=== PATIENT | female | born 1970 | race Caucasian/White ===

== ENCOUNTER 2016-11-15 05:49 | Day surgery (SDC) | payer OTHER ==
--- NOTE | 2016-11-14 17:47 | PCM.HPANE ---
Patient Data Surgeon Admitting Provider: Attending Provider:Wan Anderson MD Primary Care Physician:Mykel Medellin MD Other Provider:Joaquin De La Rosa Anesthesia Reason for Visit Excessive And Frequent Menstruation With Regular C Ht/WT & BMI Height (Feet): 5 Height (Inches): 8 Weight (Kilograms): 85.20 Body Mass Index 28.00 Allergies Coded Allergies: No Known Allergies (Verified , 11/15/16) Past Anesthesia History Anesthesia History: Denies:: Anesthesia Reactions, Difficult Intubation, Fam Anesthesia Reaction (son had allergy to med during anes) Diabetes History Hx Diabetes?: No MRSA MRSA: Yes ( hx of near buttock (last year) cleared) Medications Hypertension Medication: No Home Meds Incl Beta Geoff: No Reported Medications Ferrous Sulfate (Iron)325 Mg Capsule.er325 Mg PO DAILY 11/11/16 History History of ENT Problems?: No HEENT History: Denies:: Cataracts Difficult Intubation Dysphagia Glaucoma Hearing Problem Sinus Problem TMJ Hx of Heart Problems?: No Cardiovascular History: Denies:: AICD Atrial Fibrillation Heart Murmur Hypertension Irregular Heartbeat Pacemaker Peripheral Vascular Hx of Respiratory Problem?: No Respiratory History: Denies:: Asthma COPD Emphysema Oxygen Administration Pneumonia Tuberculosis Use of C-PAP Machine Use of Inhalers / NEBS Hx Neurologic Problems?: No Neurological History: Denies:: CVA Dementia Dizziness Headaches Multiple Sclerosis Parkinson's Disease Seizures TIA Hx of GI Problems?: No Gastrointestinal History: Denies:: Cirrhosis Gall Bladder Disease Gastroesphageal Reflux Gastrointestinal Bleeding Heartburn Hepatitis Hiatal Hernia Liver Disease Rectal Bleeding Hx of Problems?: No Genitourinary History: Denies:: Kidney Stones Urinary Tract Infection Female Hx: Denies:: Currently (hx tubal ligation) Problems with Breasts? Skin History: Denies:: History Skin Disorders? Pressure Ulcers Hx Musculoskeletal Problems?: No Musculoskeletal History: Denies:: Back Injury Fibromyalgia Joint Replacement Musculoskeletal Trauma Myasthenia Gravis Osteoarthritis Rheumatoid Arthritis Hx of Psycho/Social Problems?: No Psycho Social History: Denies:: Anxiety Hx Depression Hx Surgeries?: Yes (tubal) Hx Any Other Health Problems?: Yes Other History: Denies:: Cancer Thyroid Disease History Blood Transfusions: Positive for:: Accept Blood Products? Denies:: Blood Transfusions Hx Diabetes: No Hx Alcohol Use: YesAlcoholic Drinks Per Day: one to two drinks monthlyHx Substance Use: NoHave You Smoked inLast 12 mo: No Stop/Bang S-Snoring: Do You Snore Loudly: No T-Tired: feel tired, fatigued: No O-Obsered: Observed not breath: No P-Blood Pressure: treated: No B- Body Mass Index > 35 kg/m2: No A- Age over 50: No N- Neck Large Circumference: No G- Gender Male: No STEVO Total Score: 0 Risk Assessment Category Category 1A: Patient has history of documented sleep apnea, and HAS NOT received any narcotic, sedative or anesthesia administration during this stay. Category 1B: Patient has history of documented sleep apnea, and HAS received any narcotic , sedative or anesthesia administration during this stay Category 2: Patient has SUSPECTED Obstructive Sleep Apnea, and HAS received any narcotic , sedative or anesthesia administration during this stay. Category 3: Patient has SUSPECTED Obstructive Sleep Apnea and HAS NOT received narcotic, sedative or anesthesia administration during this stay. Category 4: Outpatient in Procedural Areas with known sleep apnea or who screen positive for High Risk via the STOP/BANG questionnaire. Exam Exam General Appearance: Alert, Oriented X3, Cooperative HEENT/AIRWAY: MP 2, Neck Movement (from), Mouth Opening (wnl) Lungs: Clear to Auscultation Heart: Exam Unremarkable Plan Impression Patient chart reviewed, patient interviewed and anesthestic plan with risks, benefits, and alternatives discussed, and informed consent obtained. ASA Physical Status: ASA2 Mod Systemic Disease Anesthetic Plan: GA Bene/Risks/Altern/Consents: Yes HP Complete Prior to Induction: Yes Jose Antony MD Nov 14, 2016 17:47
[2016-11-15] VITALS (17 sets, daily range): BP systolic 116–145; BP diastolic 45–83; PULSE 79–105; RESP 10–20; O2SAT 94–100
[~2016-11-15] VITALS: Ht 170.2 cm; Wt 85.3 kg
[~2016-11-15 05:49] MED LIST: FERR325C PO; LORazepam 1 mg Tablet PO PRN; Lactated Ringer's 1,000 ML IV SCH
[2016-11-15] MEDS ORDERED: fentaNYL-PF 50 mCg/mL 2 mL Inj ONE (05:50)
[2016-11-15] MEDS ORDERED: HYDROmorphone 2 mg/mL Inj ONE (05:50)
[2016-11-15] MEDS ORDERED: CeFAZolin Inj 2 GM in IV Premix 1 EACH IV ONE (06:00)
[2016-11-15] MEDS ORDERED: Lactated Ringer's 1,000 ML IV SCH ×2 (06:00→07:22)
--- NOTE | 2016-11-15 06:24 | HP PRE OP ---
[address] [address] PREOPERATIVE HISTORY AND PHYSICAL PATIENT: BENSON CARLTON : 1970 MR#: [id number] ADMIT: 11/15/2016 JOB ID: [id number] IDENTIFICATION: The parent is a 46-year-old, G2, P1, AB0 woman. CHIEF COMPLAINT: Menorrhagia, dysmenorrhea, large fibroid uterus, for surgical intervention. HISTORY OF PRESENT ILLNESS: This patient carries a history of vaginal delivery and bilateral tubal ligation. She reports that periods have always been a problem, even beginning with control pill at age 17 to help control period symptomatology. Periods have been progressively worsening during the past years, however, each period lasting seven days, 3-4 days heavy, and accidents can happen. The patient has been found to be anemic, with hemoglobin at 8.3 and 8.5 during recent months, with significant iron deficiency (iron level 17 and percent saturation of 3.3). There has also been associated significant dysmenorrhea and fatigue. Although endometrial biopsy was negative on September 22, 2016, and there has been no reported abnormal Pap, transvaginal sonography demonstrated large fibroids at 7.4 and 4.7 cm in greatest dimension, felt to be the primary explanation for the bleeding and cramping issues. Overall uterine size 14.0 x 9.3 x 8.6 cm. Patient has been given options regarding the large fibroid uterus with associated severe anemia-producing menorrhagia and dysmenorrhea. She has not felt that hormonal therapy was preferable, and I have agreed, particularly in light of multiple large fibroids and severity of the anemia and symptoms. She had in fact in the past had an effort at IUD placement in another office but it could not be inserted. Ablation has not been considered the best option in light of large fibroids. The patient has requested definitive surgical therapy, i.e. hysterectomy, and this has been scheduled for November 15, 2016. The patient has understood risks of surgery to include bleeding, infection, injury to the urinary tract and bowel, potential need for laparotomy if significant bleeding or other problem, potential anesthetic risks, potential postoperative deep venous thrombosis or pulmonary embolus, etc. All questions have been answered, no guarantees have been stated or implied, and patient has signed informed consent for surgery. Note that route of hysterectomy is dependent on uterine descent and vaginal adequacy. Uterus is enlarged and we will do pelvic examination under anesthesia, followed by decision regarding total vaginal versus laparoscopic assisted vaginal approach, or even total abdominal hysterectomy if needed. All of these procedural types have been placed on consent, and of course, with preference toward vaginal (or laparoscopic) approaches, although she has prepared mentally for a large incision if in fact uterus cannot be removed through the vaginal region. In summary then, the patient will be admitted to [facility] on November 15, 2016, on which day she will undergo pelvic examination under anesthesia, total vaginal versus laparoscopic assisted vaginal hysterectomy if feasible, although with potential for total abdominal hysterectomy if the uterus is simply too large and/or too poorly descends through the vaginal region. PHYSICAL EXAMINATION: On admission: Weight 188 pounds, blood pressure 120/80. Neck: No thyromegaly. Lungs: Clear to auscultation and percussion. Heart: Regular in rate and rhythm. Abdomen: Tubal ligation scarring noted. Pelvic examination: Vulva, vagina and cervix no obvious epithelial abnormalities. Potential slight cervical stenosis noted. Bimanual examination difficult, patient could not well relax. DIAGNOSTIC DATA: Current preoperative lab work report not available at the time and place of this dictation. IMPRESSION: 1. Progressive menorrhagia, anemia-producing, felt to be related to large fibroid uterus, with patient requesting definitive surgical intervention via hysterectomy. 2. Progressive associated dysmenorrhea, related to menorrhagia and large fibroid uterus, with patient requesting definitive surgical intervention, i.e. via hysterectomy. 3. Significant chronic iron deficiency anemia secondary to cyclical severe menstrual blood loss, using iron therapy. 4. Surgical history: a. Vaginal delivery. b. Tubal ligation. c. Cervical cryotherapy (with potential for past cervical stenosis). d. Surgery for spina bifida, as a (meningomyelocele). e. Prior meningomyelocele, requiring surgery and prolonged hospitalization as . Reportedly slow to walk early on, reported weakness in bladder, note also other associated findings including partial clubfoot requiring casting, and learning disability. 5. No known drug allergies. 6. Medications utilized: Ferrous sulfate 325 mg p.o. b.i.d. in preparation for surgery in an effort to improve anemia. 7. Family history of stroke (father). PLAN: The patient will be admitted to [facility] on November 15, 2016, on which day she will undergo anesthesia, but then pelvic examination to help determine whether vaginal versus laparoscopic assisted vaginal hysterectomy approach is reasonable, hoping to avoid large abdominal incision. A Pfannenstiel incision/laparotomy will be accomplished for total abdominal hysterectomy, however, if needed to complete definitive surgical procedure that has been requested, i.e. hysterectomy to resolve once and for all bleeding and cramping issues with removal of large fibroid uterus. Note the patient has been asked to avoid nonsteroidal anti-inflammatory drugs and aspirin during the week prior to surgery.
[2016-11-15] MEDS ORDERED: Lactated Ringer's 1,000 ML IV ONE ×3 (06:34→11:16)
[2016-11-15] MEDS ORDERED: Acetaminophen IV 1,000 MG in IV Premix 1 EACH IV ONE (06:55)
[2016-11-15] MEDS ORDERED: Lactated Ringer's 500 ML IV PRN (07:22)
[2016-11-15] MEDS ORDERED: Dexamethasone 4 mg/mL Inj IVPUSH PRN (07:25)
[2016-11-15] MEDS ORDERED: Ondansetron 2 mg/mL 2 mL Inj IVPUSH PRN ×2 (07:25→12:45)
[2016-11-15] MEDS ORDERED: EPHEDrine Sulfate 50 mg/mL Inj IVPUSH PRN (07:25)
[2016-11-15] MEDS ORDERED: fentaNYL-PF 50 mCg/mL 2 mL Inj IVPUSH PRN (07:25)
[2016-11-15] MEDS ORDERED: EPHEDrine Sulfate 50 mg/mL Inj IM PRN (07:25)
[2016-11-15] MEDS ORDERED: hydrALAZINE 20 mg/mL Inj IVPUSH PRN (07:25)
[2016-11-15] MEDS ORDERED: HYDROmorphone 1 mg/mL Inj IVPUSH PRN (07:25)
[2016-11-15] MEDS ORDERED: Phenylephrine 10,000 mCg/mL Inj IVPUSH PRN (07:25)
[2016-11-15] MEDS ORDERED: Atropine 0.4 mg/mL Inj IVPUSH PRN (07:25)
[2016-11-15] MEDS ORDERED: hydrOXYzine Inj 25 MG/1 mL SDV IM PRN (07:25)
[2016-11-15] MEDS ORDERED: Labetalol 5 mg/mL 4 mL Inj IV PRN (07:25)
[2016-11-15] MEDS ORDERED: Lidocaine 1%-Epi 1:100,000 20 mL Inj INJ ONE (08:39)
--- NOTE | 2016-11-15 12:42 | PCM.ANEP1 ---
Post Anesthesia Phase 1 PACU Phase 1 Assessment Vital Signs Vital Signs Date Time Temp Pulse Resp B/P Pulse Ox O2 Delivery O2 Flow Rate FiO2 11/15/16 06:18 36.1 87 16 143/61 97 Room Air Anesthetic Administered: GA Level of Alertness: Awake, talking HOU's with Equal Strength: Yes Pain: No Nausea or Vomiting: No Oxygen Delivery: Room Air Lungs: Normal Air Movement Jose Antony MD Nov 15, 2016 12:41
[2016-11-15] MEDS ORDERED: Alum-Mag Hydrox-Simeth 30 mL Suspension PO PRN (12:45)
[2016-11-15] MEDS ORDERED: Acetaminophen IV 1,000 MG in IV Premix 1 EACH IV PRN (12:45)
[2016-11-15] MEDS ORDERED: oxyCODONE-Acetamin 5-325 mg Tablet PO PRN (12:45)
[2016-11-15] MEDS ORDERED: Senna-Docusate 8.6-50 mg Tablet PO PRN (12:45)
[2016-11-15] MEDS ORDERED: MetoCLOpramide 5 mg/mL 2 mL Inj IVPUSH PRN (12:45)
[2016-11-15] MEDS ORDERED: HYDROmorphone 0.5 mg/0.5 mL iSecure Syringe ONE (13:43)
[2016-11-15] MEDS: Lactated Ringer's 1,000 ML IV SCH ×2 (14:38→22:29)
--- NOTE | 2016-11-15 17:21 | NUR ---
post op patient received from pacu at 1430 to room 3010. oriented to room and call light and states understanding. lr at 125ml/hr started as per order. initially arrived with tolerable pain level. increased after arrival to room. patient medicated with prn iv toradol with effective results. additionally heating pad to abdomen in place. current pain rating of "3/10". denies nausea or sob. tolerating clear liquids. denies nausea. scant amount of drainage to alessandro pad. monge draining light brown urine and patent. patient up to dangle and stand and tolerated with no problems. discussed plan to ambulate after dinner time. scd's in place. will give report to davie coredro at 1900. Addendum: 11/15/16 at 1951 by KEN ARGUETA RN rechecked alessandro pad at 1920 and no drainage noted. patient to receive iv tylenol per davie yoder.
[2016-11-16 02:29] VITALS: BP 122/69; PULSE 114; RESP 16; O2SAT 95
--- NOTE | 2016-11-16 03:35 | NUR ---
Postop Night Pt c/o abdominal pain 4-5/10, mild tenderness at pelvic area. IV Tylenol, Ketorolac, Oxycodone given alternatively, pain down to 0/10. Pt denies N/V/SOB/fever/chills throughout the night. Not pass gas yet, but burp a few times, tolerate clear liquids. Pt instructed advance diet gradually after pass flatus. Peripad with minimal serosanguineous drainage. Suarez in place, patent, put out sufficient pink tinged urine, no blood clots noted. MD order: "Do not remove Suarez." LR running. Pt ambulated in hallwayx1 at late pm, denies dizziness, vertigo. Pt encouraged to ambulate at least 3 times/day starting today. Alert and orientedx3, VSS, sleeping well overnight.
[2016-11-16 05:16] VITALS: BP 123/66; PULSE 95; RESP 16; O2SAT 99
[2016-11-16 06:18] LABS: BASOPHILS % (AUTO) 0.1 % (0-3); EOSINOPHILS % (AUTO) 0 % (0-5); MONOCYTES % (AUTO) 11.3 % (4-12); Mean Corpuscular Hemoglobin 27.1 pg (27.0-35.0); Mean Corpuscular Volume 83.3 fL (81-100); Platelet Count 196 bil/L (150-400)
[2016-11-16] MEDS: Lactated Ringer's 1,000 ML IV SCH ×2 (06:21→12:44)
--- NOTE | 2016-11-16 07:36 | PCM.ANEP2 ---
Post Anesthesia Evaluation ASA/CMS Post Anesthesia VS in Patient's Normal Range?: Yes Resp Stable; Airway Patent?: Yes CV Function & Hydration Stable: Yes Mental Status Recovered?: Yes Pain control Satisfactory?: Yes N/V Control Satisfactory?: Yes Jose Antony MD Nov 16, 2016 07:36
--- NOTE | 2016-11-16 09:03 | PCM.DIGYN ---
Surgical Discharge Instruction Dates of Hospitalization Date of Hospital Admission Providers Admitting Physician: Primary Care Physician: Mykel Medellin MD Attending Physician: Wan Anderson MD Diagnosis at Time of Discharge Problems: (1) Menorrhagia Status: Acute ICD Code: N92.0 (2) Dysmenorrhea Status: Acute ICD Code: N94.6 (3) Uterine fibroid Status: Acute ICD Code: D25.9 Diet Discharge Diet: No restrictions Activity Discharge Activity-General: Balance rest and activity, No lifting >10 pounds for 4-6 weeks, Other (Pelvic Rest for 6 weeks) Dressing and Incisional Care Hygiene: May shower, NO bathtub, hot tub or whirlpool Follow Up Plan Follow-up appointment: Weeks (Follow up postoperative appointments in 2 and in [address] Anderson, as already scheduled.) Call your provider for: Fever, Chills, Shortness of breath, Heavy vaginal bleeding Wan Anderson MD Nov 16, 2016 09:03
[2016-11-16] MEDS ORDERED: DOCU-41 PO (09:10)
[2016-11-16] MEDS ORDERED: OXYC1TAB24 PO (09:10)
[2016-11-16] MEDS ORDERED: IBUP-1827 PO (09:10)
[2016-11-16 09:21] VITALS: BP 123/69; PULSE 89; RESP 16; O2SAT 97
--- NOTE | 2016-11-16 10:23 | NUR ---
Social Work-screening/discharge: Data:EMR reviewed. Pt is a 46 y/o female who was admitted for excessive and frequent menstruation per H&P. Pt's insurance is [employer] and PCP is Mykel Medellin MD. EMR Reviewed. Pt resides at home where she remains independent with ADLs. Pt has been up independent in her room. Pt is anticipated to discharge home today. Pt's family to provide transport. No discharge needs identified. All updated and agreeable to plan. Assessment:Pt who is independent at baseline. Plan:Pt to discharge home today via POV. No discharge needs identified. All updated and agreeable to plan. PAUL Lundberg
--- NOTE | 2016-11-16 14:07 | NUR ---
Discharge She discharged at 1405 with her mother. IV discontinued intact. Paperwork discussed and given to her (instructions, care notes, hard copy of prescriptions). Her questions were answered at the time of discharge.
--- NOTE | 2016-11-16 17:58 | DIS ---
[address] [address] DISCHARGE SUMMARY PATIENT: BENSON CARLTON : 1970 MR#: [id number] ADMIT: 11/15/2016 JOB ID: [id number] DIS: 11/16/2016 DISCHARGE DIAGNOSES: 1. Progressive menorrhagia. 2. Progressive dysmenorrhea. 3. Large fibroid uterus. PROCEDURES PERFORMED DURING HOSPITALIZATION: Total vaginal hysterectomy. HOSPITAL COURSE: Patient was admitted to [facility] on November 15, 2016 on which day she underwent total vaginal hysterectomy under general anesthesia. Surgery was challenging due to the large and multiple uterine fibroids, although doable, having gone well. Postoperatively, the patient has done well also, with stable vitals, afebrile, with no worrisome vaginal bleeding, voiding after keeping catheter in overnight, ambulating, eating, moving gas, and having very reasonable pain management. She was interested in going home on the first postoperative day, and her request was granted. Note excellent urine output overnight, clearing urine, and postoperative hemoglobin greater than 11. DISCHARGE PROGRAM: Patient will call p.r.n. any problems, yet otherwise she will follow up at two and at six weeks for postoperative checkups. She will observe pelvic rest and not do any heavy lifting for six weeks. DISCHARGE MEDICATIONS: Include Percocet, ibuprofen, and Colace, prescriptions written.
--- NOTE | 2016-11-16 18:52 | OP ---
[address] [address] OPERATIVE REPORT PATIENT: BENSON CARLTON : 1970 MR#: [id number] ADMIT: 11/15/2016 JOB ID: [id number] DATE OF SURGERY: 11/15/2016 SURGEON: Wan Anderson MD [employer]AVERN [employer] ATTENDANT: Jenny Somers MD ANESTHESIA: General. PREOPERATIVE DIAGNOSIS(ES): 1. Progressive menorrhagia. 2. Progressive dysmenorrhea. 3. Significant uterine fibroids. POSTOPERATIVE DIAGNOSIS(ES): 1. Progressive menorrhagia. 2. Progressive dysmenorrhea. 3. Significant uterine fibroids. PROCEDURES PERFORMED: Total vaginal hysterectomy. FINDINGS AT SURGERY: On bimanual examination the uterus was noted to be significantly enlarged, and broad and irregular surface, consistent with multiple fibroids. The cervix descended down to +2 to +3 station with descent, although further descent limited due to the large fibroid uterus. The cervix was otherwise normal in appearance. Upon hysterectomy procedure, the uterus was noted to be enlarged, with morcellation having been accomplished with many many uterine sections. Multiple fibroids were noted. Note that ovaries and tubes were normal in appearance, with physiologic-appearing small cyst noted on the right ovary. Note that the interface between the anterior aspect of the cervix and lower uterine segment was adherent without obvious explanation, although separable via careful sharp and blunt dissection. At procedure's close the uterus had been removed in multiple sections with extensive morcellation process accomplished. Ovaries and tubes remained in place, appearing to be benign. There was no bleeding occurring along the pedicle lines. Urine was clear to slightly reddish at procedure's close, consistent with contact/manipulation during the dissection process from attachment to the cervix/uterus, although there was never any concern regarding bladder wall integrity. There was never a gush of fluid within the pelvis. Visual inspection of the bladder as well as palpation of the bladder (as well as both could be accomplished), demonstrated bladder wall integrity. There was also no evidence for any major blood vessel injury or other problem. There was no bleeding occurring at procedure's close and urine was starting to clear by procedure's close. It certainly is anticipated that patient will do very well in the postoperative timeframe. Surgery took us twice as long as a typical case due to the large and multiple fibroids, with tedious step by step dissection and morcellation accomplished. To achieve uterine removal in a safe manner. Decision was made to keep the patient overnight for observation and management in light of the lengthy surgery (3-1/2 hour length) in conjunction with her fear and anxiety with going home too soon with a large surgery. PROCEDURE IN DETAIL: The patient was placed in supine position on the operating table and general anesthesia was induced. She was then very carefully positioned in the low dorsal lithotomy position and a pelvic examination under anesthesia was accomplished. It was determined that vaginal hysterectomy this is possible, although uterus enlarged with multiple fibroids. The patient was then prepped and draped in the usual sterile manner, with a Suarez catheter temporarily draining the ladder, and an appropriate time-out was taken. Lidocaine with epinephrine solution was injected circumferentially at the cervicovaginal mucosal junction and an incision was then made at this same site circumferentially. An appropriate plane was easily developed posteriorly with entrance into the posterior cul-de-sac. Anteriorly, the plane was more difficult to achieve, with some significantly greater than average adherence, although gradually plane readily developed with great care given to visualize the bladder and to separate the bladder wall intact from the cervix and lower uterine segment, accomplished. This involved sharp and blunt dissection. Ultimately, the bladder was completely and the vesicouterine peritoneal fold incised. The uterosacral ligaments were clamped, divided, and suture ligated using 0-Vicryl suture, followed by clamping, division, and suture ligation of the cardinal ligaments and then the uterine vasculature. There was minimal bleeding occurring at this point. However, the cervix and uterus would not further descend without morcellation effort and this was thus undertaken. Fibroids were rather highly located in the uterine fundus and were difficult to access, although ultimately one was morcellated, and then another, and then another, and so on. This uterine size decompression ultimately allowed the cervix and uterus to further distend, until finally the upper pedicles could be clamped and divided, using great care for the bladder as well as great care to sustain bladder area orientation to allow final removal of residual portions of the uterus to avoid complications. This process was tedious and greatly time consuming, yet doable, with good result. Pedicle lines were inspected. There were no bleeding sites. Bladder wall was inspected and palpated. There were no obvious defects. Bleeding was scant at this point. Ovaries and tubes appeared normal. Instrument, needle and sponge counts were all found to be correct. Vaginal cuff closure was then accomplished in a [id number] fashion using [id number] stitches of 0-Vicryl suture, with complete hemostasis achieved. A Suarez catheter had been inserted to facilitate the procedure, and urine was pale reddish clear by procedure's close, progressively clearing. There were no clots. Procedure was complete. No packing was required. The patient was returned to supine position and taken to recovery room. ESTIMATED BLOOD LOSS: 75 mL. COMPLICATIONS: None. PROGNOSIS: Good for surgical recovery. Note that this patient will benefit from vaginal approach to this difficult hysterectomy as opposed to a large abdominal incision which was the other likely route for surgery. SAM
--- NOTE | 2016-11-17 14:03 | PATH ---
SURGICAL PATHOLOGY Attending Physician:Wan Anderson M.D CASE STATUS: Signed Out PATIENT NAME: BENSON CARLTON PID: [id number] : 1970 DATE COLLECTED:11/16/2016 00:00 SPECIMEN: Uterus +/- tubes/ovaries, except neoplastic, prolapse CLINICAL HISTORY: MENORRHAGIA, DYSMENORRHAGIA, FIBROID UTERUS 1). 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 MULTIPLE SEPARATE FRAGMENTS OF LEIOMYOMATA. NO EVIDENCE OF MALIGNANCY. ICD10 D25.1 D25.9 D26.1 GROSS DESCRIPTION: The specimen is received in formalin, labeled with the patient's name, sublabeled as uterus & morcellated fibroids, and consists of a longitudinally bivalved uterus (200 g, 6.2 cm AP, 12.8 cm SI, 6.6 cm ML). The ovaries and fallopian tubes are absent. The uterus is distorted. The specimen cannot be oriented as to anterior and posterior. The cervix (1.7 cm AP, 3.1 cm ML) has a transverse os and patent endocervical canal lined by multiple cystic cavities (0.2 cm-2.3 cm) containing clear colorless gelatinous material. The endometrium (average thickness-0.1 cm) is wolfe smooth and flat. The myometrium (thickness-3.5 cm) is wolfe and contains multiple solid firm white whorled homogenous well-circumscribed nodules (0.8 x 0.5 x 0.5 cm-2.8 x 2.5 x 2.2 cm). The serosa is dark brown and ragged with multiple adhesions. Also submitted are multiple pieces of wolfe-white solid firm rubbery nodules and nodular tissue (217 g, 13.5 x 12.5 x 4.7 cm in aggregate). The tissue has a white whorled cut surface. Section code: (A-B) cervix, title insurance sales representative is bisected and submitted SI; (C) cervix, opposite side; (D, E) endomyometrium; (F, G) endomyometrium, opposite side; (H-L) nodules, title insurance sales representative. 11/16/16 JM MICRO DESCRIPTION: See diagnosis. ICD-9 CODES: CPT CODES: 15389 Electronically Signed Out Halie Hernandez MD [facility]ology [facility] [address], [place] [address] Technical component performed at [facility], [facility] [address], [place], [address]
== END 2016-11-16 14:06 | disposition home or self-care (01) ==
LOC: SAS 05:49 → MPC 14:32 → SAS 11-16 14:06
PROVIDERS: ATTEND Obstetrics & Gynecology
DX: D25.1 Intramural leiomyoma of uterus (principal); N92.0 Excessive and frequent menstruation with regular cycle; N94.6 Dysmenorrhea, unspecified; D50.0 Iron deficiency anemia secondary to blood loss (chronic); N83.201 Unspecified ovarian cyst, right side
CPT/HCPCS: 36415; 58260; 85025; 94640; J0131; J0690; J1170; J2250; J3010; J7120